=== PATIENT | female | born 2000 | race Caucasian/White ===

== ENCOUNTER 2018-10-08 07:46 | Inpatient (IN) | payer MEDICAID, OTHER ==
[2018-10-08] MEDS ORDERED: BRETHINE SUB-Q PRN (08:08)
[2018-10-08] MEDS ORDERED: BRETHINE IVP PRN (08:08)
[2018-10-08] MEDS ORDERED: SUBLIMAZE IV PRN (08:08)
[2018-10-08] MEDS ORDERED: STADOL IV PRN (08:08)
[2018-10-08] MEDS ORDERED: AMPICILLIN/NS 2 GM/100 ML 2 GM/100 ML BAG IV ONE (08:08)
[2018-10-08] MEDS ORDERED: ZOFRAN IV PRN (08:08)
[2018-10-08 08:47] LABS: Hematocrit 36.5 % (30.3-42.9); Mean Corpuscular HGB Conc 33 % (30-34); Mean Corpuscular Volume 84 fl (79-97); Platelet Count 179 K/mm3 (140-440); Red Blood Count 4.37 M/mm3 (3.65-5.03)
[2018-10-08] MEDS ORDERED: PITOCin/NS 20 UNIT/1000ML DRIP 20 UNITS/1,000 ML BAG IV SCH (09:00)
[2018-10-08] MEDS: LACTATED RINGERS 1,000 ML IV SCH ×3 (09:01→17:27)
--- NOTE | 2018-10-08 10:57 | History and Physical Report ---
History of Present Illness Date of examination: 10/08/18 Date of admission: 10/08/18 08:29 Chief complaint: Intense labor pains History of present illness: 18 yo Fe , JOHN 10/23/2018 (LMP) 37 weeks 6 days, presents in active labor. Pt received early and consistent care with [facility]. Her has been uncomplicated. Prental labs: O positive, Rubella Non-Immune, VDRl negative, HBsAg Negative, HIV Negative, CHL/GC/Trich Negative, QUAD Negative, GBS Positive Past History Past Medical History: no pertinent history Past Surgical History: appendectomy (2010) PNEUMATIC TESTER History: denies: abnormal PAP smear, chlamydia, gonorrhea, hepatitis B, hepatitis C, herpes, HIV, syphilis, trichomonas Family/Genetic History: none Social history: no significant social history, single, full code. denies: smoking, alcohol abuse, prescription drug abuse, IV drug use - Obstetrical History Expected Date of Delivery: 10/23/18 Actual Gestation: 37 Week(s) 6 Day(s) : 2 Para: 0 Hx # Term Pregnancies: 0 Number of Pregnancies: 0 Spontaneous Abortions: 1 Induced : 0 Number of Living Children: 0 Medications and Allergies Allergies Allergy/AdvReac Type Severity Reaction Status Date / Time No Known Allergies Allergy Unverified 10/08/18 07:55 Active Meds: Active Medications Butorphanol Tartrate (Stadol) 2 mg IV Q2H PRN PRN Reason: Pain , Severe (7-10) Ephedrine Sulfate (Ephedrine Sulfate) 10 mg IV Q2M PRN PRN Reason: Hypotension Fentanyl (Sublimaze) 100 mcg IV Q2H PRN PRN Reason: Labor Pain Oxytocin/Sodium Chloride (Pitocin/Ns 20 Unit/1000ml Drip) 20 units in 1,000 mls @ 125 mls/hr IV DIRECT KARLOS Lactated Ringer's (Lactated Ringers) 1,000 mls @ 125 mls/hr IV DIRECT KARLOS Last Admin: 10/08/18 09:01 Dose: 125 mls/hr Documented by: Ampicillin Sodium (Ampicillin/Ns 1 Gm/50 Ml) 1 gm in 50 mls @ 100 mls/hr IV Q4HR KARLOS; Protocol Oxytocin/Sodium Chloride (Pitocin/Ns 30 Unit/500ml) 30 units in 500 mls @ 4 mls/hr IV TITR KARLOS; Protocol Lidocaine (Xylocaine 2%) 20 ml INFILTRATI ONCE ONE Stop: 10/08/18 10:40 Mineral Oil (Mineral Oil) 30 ml PO QHS PRN PRN Reason: Constipation Ondansetron HCl (Zofran) 4 mg IV Q8H PRN PRN Reason: Nausea And Vomiting Terbutaline Sulfate (Brethine) 0.25 mg SUB-Q ONCE PRN PRN Reason: Hyperstimulation/Hypertonicity Terbutaline Sulfate (Brethine) 0.25 mg IVP ONCE PRN PRN Reason: Hyperstimulation/Hypertonicity Review of Systems Eyes: normal appearance Cardiovascular: no chest pain, no shortness of breath Respiratory: no shortness of breath Breasts: normal Gastrointestinal: no nausea, no vomiting, no diarrhea Genitourinary: normal appearance, contractions, no leakage of fluid, no genital sores Integumentary: no rash, no lesions - Vital Signs Vital signs: Vital Signs Pulse BP 92 H 134/77 10/08/18 07:54 10/08/18 07:54 Temp Pulse Resp BP Pulse Ox 98.7 F 80 18 124/60 99 10/08/18 10:40 10/08/18 10:38 10/08/18 10:40 10/08/18 10:38 10/08/18 10:40 - Physical Exam Breasts: Positive: normal Cardiovascular: Regular rate, Normal S1, Normal S2, No murmurs Lungs: Positive: Clear to auscultation, Normal air movement Abdomen: Positive: normal appearance, soft, normal bowel sounds. Negative: distention Genitourinary (Female): Positive: normal external genitalia, normal perenium Vulva: both: normal Vagina: Positive: normal moisture Uterus: Positive: enlarged Anus/Rectum: Positive: normal perianal skin Extremities: Positive: normal Deep Tendon Reflex Grade: Normal +2 - Obstetrical FHR: category 1 Uterine Contraction Monitor Mode: External Cervical Dilatation: 3 (Per Rn on admission) Cervical Effacement Percentage: 100 station: -2 Uterine Contraction Pattern: Irregular Uterine Tone Measurement Phase: Resting Uterine Contraction Intensity: Moderate Results Result Diagrams: 10/08/18 08:30 Abnormal lab results 10/08/18 Range/Units 08:30 WBC 13.4 H (4.5-11.0) K/mm3 RDW 18.0 H (13.2-15.2) % All other labs normal. Assessment and Plan A: IUP at 37w6d Active labor GBS positive P: Admit to L&D; Routine labor orders GBS prophylaxis anticiapte
[2018-10-08] MEDS ORDERED: PITOCin/NS 30 UNIT/500ML 30 UNITS/500 ML BAG IV SCH (11:00)
[2018-10-08] MEDS ORDERED: XYLOCAINE 2% INFILTRATI NR (11:00)
[2018-10-08] MEDS: AMPICILLIN/NS 1 GM/50 ML 1 GM/50 ML BAG IV SCH ×3 (13:30→22:33)
[2018-10-08] MEDS ORDERED: NARCAN 2 MG/2 ML IV PRN (16:00)
[2018-10-08] MEDS: fentaNYL-BUPIV 2 MCG/ML-0.125% 200 MCG/100 ML BAG EPIDURAL SCH (16:14)
--- NOTE | 2018-10-08 16:15 | Anesthesia Consultation ---
Anesthesia Consult and Med Hx Date of service: 10/08/18 - Airway Anesthetic Teeth Evaluation: Good ROM Head & Neck: Adequate Mental/Hyoid Distance: Adequate Mallampati Class: Class I Intubation Access Assessment: Probably Good - Pulmonary Exam CTA: Yes - Cardiac Exam Cardiac Exam: RRR - Pre-Operative Health Status ASA Pre-Surgery Classification: ASA2 Proposed Anesthetic Plan: Epidural - Pulmonary Hx Smoking: No Hx Asthma: No Hx Respiratory Symptoms: No SOB: No COPD: No Home Oxygen Therapy: No Hx Pneumonia: No Hx Sleep Apnea: No - Cardiovascular System Hx Hypertension: No Hx Coronary Artery Disease: No Hx Heart Attack/AMI: No Hx Angina: No Hx Percutaneous Transluminal Coronary Angioplasty (PTCA): No Hx Cardia Arrhythmia: No Hx Pacemaker: No Hx Internal Defibrillator: No Hx Valvular Heart Disease: No Hx Heart Murmur: No Hx Peripheral Vascular Disease: No - Central Nervous System Hx Neuromuscular Disorder: No Hx Seizures: No CVA: No Hx Back Pain: No Hx Psychiatric Problems: No - Gastrointestinal Hx Ulcer: No Hx Gastroesophageal Reflux Disease: Yes - Endocrine Hx Renal Disease: No Hx End Stage Renal Disease: No Hx Cirrhosis: No Hx Liver Disease: No Hx Insulin Dependent Diabetes: No Hx Non-Insulin Dependent Diabetes: No Hx Thyroid Disease: No Hx Hypothyroidism: No Hx Hyperthyroidism: No - Hematic Hx Anemia: Yes Hx Sickle Cell Disease: No - Other Systems Hx Alcohol Use: No Hx Substance Use: No Hx Cancer: No Hx Obesity: No
--- NOTE | 2018-10-08 16:16 | Post Anesthesia Evaluation ---
- Post Anesthesia Evaluation Patient Participated: Yes Airway Patent: Yes Stable Respiratory Function: Yes Nausea/Vomiting: No Temp > 96.8F: Yes Pain Manageable: Yes Adequeate Hydration: Yes Anesthesia Complications: No Block Receding Appropriately: Yes Patient on Ventilator: No
--- NOTE | 2018-10-08 16:16 | Anesthesia Day of Surgery ---
Anesthesia Day of Surgery - Day of Surgery Patient Examined: Yes Patient H&P Reviewed: Yes Patient is NPO: Yes Beta Blockers: No Cardiac Clearance: No Pulmonary Clearance: No Travis's Test: N/A
[2018-10-08] MEDS ORDERED: MINERAL OIL PO PRN (22:00)
[2018-10-08] MEDS ORDERED: TYLENOL ONE (22:40)
[2018-10-08] MEDS ORDERED: MARCAINE 0.25% INFILTRATI ONE (23:09)
[2018-10-09] MEDS: fentaNYL-BUPIV 2 MCG/ML-0.125% 200 MCG/100 ML BAG EPIDURAL SCH ×2 (00:17→07:20)
[2018-10-09] MEDS: TYLENOL PO PRN ×2 (02:06→22:36)
[2018-10-09] MEDS: AMPICILLIN/NS 1 GM/50 ML 1 GM/50 ML BAG IV SCH ×2 (02:26→06:00)
[2018-10-09] MEDS: LACTATED RINGERS 1,000 ML IV SCH ×2 (06:01→23:13)
[2018-10-09] MEDS ORDERED: MARCAINE 0.25% INFILTRATI ONE (07:15)
[2018-10-09] MEDS ORDERED: GENTAMICIN 80 MG in NACL 0.9% 100 ML IV SCH (07:30)
[2018-10-09] MEDS ORDERED: TYLENOL PO ONE (08:00)
[2018-10-09] MEDS ORDERED: ANCEF/STERILE WATER 2 GM/20 ML 2 GM/20 ML SYRINGE IV ONE (08:34)
[2018-10-09] MEDS ORDERED: PEPCID IV ONE (08:34)
[2018-10-09] MEDS ORDERED: REGLAN ONE (08:34)
[2018-10-09] MEDS ORDERED: BICITRA ONE (08:34)
[2018-10-09] MEDS ORDERED: MARCAINE 0.5% INFILTRATI ONE (08:35)
--- NOTE | 2018-10-09 08:48 | Event Note ---
Called to patient room for temp 100.4 since admission. GBS positive receiving ampicillin. Instructed nurse and wrote orders to begin gentamicin. Examined patient cervix 8/100/-3. Pitocin = 2mu. Epidural in place. Placed IUPC. Observed patient for 1 hour Temp 100.7, tachycardia 170s, suspected chorioamnionitis chorioamnionitis. Rechecked cervix 9/100/-2. However, patient unable to bear down and push effectively. Due to tachycardia, maternal temperature and suspected chorioamnionitis, unproven pelvis and anticipation of remote delivery >1hr discussion had with patient concerning exposure of fetus to infected amniotic fluid for prolonged periods of time. Recommend primary section for tachycardia and suspected chorioamnionitis present on admission - distress. Risks, benefits and alternatives discussed and informed consent signed.
[2018-10-09] MEDS ORDERED: XYLOCAINE MPF 2% ONE (08:58)
[2018-10-09] MEDS ORDERED: SUBLIMAZE ONE (08:58)
[2018-10-09] MEDS ORDERED: HEMABATE IM ONE (08:58)
[2018-10-09] MEDS ORDERED: SODIUM CHLORIDE FLUSH SYRINGE 10 ML IV PRN (09:00)
[2018-10-09] MEDS ORDERED: ZOFRAN IV PRN (09:00)
[2018-10-09] MEDS ORDERED: NARCAN 0.4 MG/1 ML IV PRN (09:00)
[2018-10-09] MEDS ORDERED: ANCEF/STERILE WATER 2 GM/20 ML 2 GM/20 ML SYRINGE IV NR (09:00)
[2018-10-09] MEDS ORDERED: PHENERGAN PO PRN (09:00)
[2018-10-09] MEDS ORDERED: PHENERGAN PR PRN (09:00)
[2018-10-09] MEDS ORDERED: PEPCID IV NR (09:00)
[2018-10-09] MEDS ORDERED: BICITRA PO NR (09:00)
[2018-10-09] MEDS ORDERED: DILAUDID IV PRN (09:00)
[2018-10-09] MEDS ORDERED: METHERGINE IM ONE ×2 (09:00→12:08)
[2018-10-09] MEDS ORDERED: LACTATED RINGERS 1,000 ML IV SCH (09:00)
[2018-10-09] MEDS ORDERED: NEO SYNEPHRINE ONE (09:17)
[2018-10-09] MEDS ORDERED: LACTATED RINGERS 1,000 ML ONE (09:45)
[2018-10-09] MEDS ORDERED: DILAUDID ONE ×2 (10:38→10:57)
[2018-10-09] MEDS ORDERED: TORADOL ONE (10:58)
[2018-10-09] MEDS ORDERED: LANSINOH TP PRN (12:00)
[2018-10-09] MEDS ORDERED: MORPHINE IV PRN (12:00)
[2018-10-09] MEDS ORDERED: AFLURIA QUAD 2018-2019 SYRINGE IM ONE (12:00)
[2018-10-09] MEDS ORDERED: TUCKS PAD TP PRN (12:00)
[2018-10-09] MEDS ORDERED: MYLICON PO PRN (12:00)
[2018-10-09] MEDS ORDERED: PITOCin/NS 20 UNIT/1000ML DRIP 20 UNITS/1,000 ML BAG IV SCH (12:00)
--- NOTE | 2018-10-09 12:08 | Operative Report ---
Operative Report Operative Report: PREOP Diagnosis 1. 38 weeks gestation 2. tachycardia/Category II heart tracing 3. Suspected chorioamnionitis 4. Maternal fever 5. Hematuria Postop Diagnosis 1. 38 weeks gestation 2. tachycardia/Category II heart tracing 3. Suspected chorioamnionitis 4. Maternal fever 5. Hematuria Procedure: 1. Primary low-transverse section 2. Retrograde bladder irrigation with sterile-milk Findings 1. Viable male infant, vertex presentation, weighing 6lb 14oz, 3115g APGARS 8 at 1 min, 9 at 5 min 2. Hematuria noted pre- and intra-op. 3. No sterile milk noted in surgical field s/p retrograde filling with sterile milk Surgeon 1. Anahy Wheatley MD Anesthesia: 1. Epidural I/O: EBL: 800ml UOP: 250ml, clear urine IVF 800ml LR Specimens removed: 1. Placenta -to pathology Complications: none Disposition: Patient taken to recovery room in stable condition INDICATIONS: The patient is a 18yo at 38 weeks was undergoing augmentation of labor. She progressed to 9cm however maternal fever worsened despite antibiotics and tachycardia developed. A discussion was had with the patient about the risks of chorioamnionitis. After a trial of pushing and a concern for remote delivery the decision was made to proceed to primary section. The pat ient was consented and the risks including but not limited to bleeding, infections, injury to surrounding organs, potential injury to mother/ were discussed. All questions were answered and informed consent signed. PROCEDURE: The patient was taken to the OR in stable condition. Adequate anesthesia was achieved with epidural anesthesia. A Nazario catheter was previously in place with hematuria. She wore SCDs for DVT prophylaxis. And received Ancef for infection prophylaxis. The patient was prepped and draped in the usual fashion and an additional time out was done. A Pfannestiel incision was made in the skin. The fascia was incised and the incision extended laterally. The superior and inferior aspect of the rectus muscle was dissected off of the fascia. Entry into the peritoneum was achieved. The incision was extended cranially. Uterine serosal adhesions to bladder and pelvic organs were noted. A low- transverse incision made made in the uterus and extended laterally. membranes were ruptured The head was brought to the hysterotomy and head and body delivered. The was bulb suctioned. The cord was clamped x 2, cut and infant handed off to awaiting cell tuber machine staff. The placenta was delivered intact and 20 units of IV Pitocin was added to LR fluids. The uterus was cleaned of all clots. The vesicouterine peritoneum and lower uterine se gment were adhered and noted to have areas of bleeding. The uterus was repaired with 0-Vicryl in a running, locked stitch and an imbricating layer of the same suture was used. Due to the hematuria, the bladder was backfilled with 60ml of sterile milk. The pelvis was irrigated with normal saline and no milk was noted in the surgical field. No defects were noted in the bladder. Tissell fibrin product and Surgicel were applied to the hysterotomy and vesicouterine peritoneium. The rectus muscle and was reapproximated with 2-0 Vicryl. The fascia was closed with 0 Vicryl. Subcutaneous layer reapproximated with 2-0 Vicryl. and Skin closed with 4-0 Vicryl. The patient tolerated the procedure well. All counts were correct x 3. Urine was noted to be clear at close of case. I was present and scrubbed for the entire procedure. The patient was taken to the recovery room in stable condition. The nazario catheter will be maintained in place for 24hrs and re-evaluated.
[2018-10-09 12:17] LABS: Hematocrit 31.2 % (30.3-42.9); Hemoglobin 10.4 gm/dl (10.1-14.3); Mean Corpuscular HGB Conc 33 % (30-34); Mean Corpuscular Volume 83 fl (79-97); Platelet Count 151 K/mm3 (140-440); Red Blood Count 3.75 M/mm3 (3.65-5.03); Red Cell Distribution Width 17.9 % (13.2-15.2)
[2018-10-09] MEDS: CLEOCIN 900 MG/50 mL 900 MG/50 ML BAG IV SCH ×3 (12:21→22:45)
[2018-10-09] MEDS: TORADOL IV PRN ×2 (12:33→22:36)
[2018-10-09 12:46] LABS: Alanine Aminotransferase 6 units/L (7-56); Albumin 2.4 g/dL (3.9-5); BUN/Creatinine Ratio 14; Blood Urea Nitrogen 10 mg/dL (7-17); Calcium 7.9 mg/dL (8.4-10.2); Hemolysis Index 1
[2018-10-09 13:22] LABS: Anisocytosis 1+; Band Neutrophils # (Manual) 1.1 K/mm3; Basophils % (Manual) 0 % (0.0-1.8); Eosinophils % (Manual) 0 % (0.0-4.3); Monocytes % (Manual) 0 % (0.0-7.3); Platelet Estimate Consistent w Auto; Total Cells Counted 100
[2018-10-09] MEDS ORDERED: GENTAMICIN/NS 100 MG/100 ML 100 MG/100 ML BAG IV SCH (17:00)
[2018-10-09] MEDS ORDERED: GENTAMICIN IV SCH (18:00)
[2018-10-09] MEDS: GENTAMICIN/NS 100 MG/100 ML 100 MG/100 ML BAG IV SCH (22:00)
[2018-10-10] MEDS: DILAUDID IV PRN ×2 (00:05→04:00)
[2018-10-10] MEDS: TORADOL IV PRN (05:52)
[2018-10-10] MEDS: GENTAMICIN/NS 100 MG/100 ML 100 MG/100 ML BAG IV SCH ×3 (05:53→21:54)
[2018-10-10] MEDS: LACTATED RINGERS 1,000 ML IV SCH (05:58)
[2018-10-10] MEDS: CLEOCIN 900 MG/50 mL 900 MG/50 ML BAG IV SCH ×2 (06:42→16:51)
[2018-10-10 07:06] LABS: BUN/Creatinine Ratio 16; Blood Urea Nitrogen 8 mg/dL (7-17); Calcium 7.7 mg/dL (8.4-10.2); Hemolysis Index 2
[2018-10-10] MEDS: FEOSOL PO SCH (10:10)
--- NOTE | 2018-10-10 11:25 | Progress Note ---
Assessment and Plan A: /postop day 1 S/P low transverse section. Anemia secondary to and blood loss. History of chorioamnionitis during labor. P: Remove Walsh catheter. Iron supplementation. Advance diet as tolerated. Encouraged patient to ambulate. Repeat CBC and metabolic panel in AM. Subjective - Subjective Date of service: 10/10/18 Principal diagnosis: /postop day 1 S/P primary LTCS Interval history: /postop day 1 S/P primary low transverse section. Doing well. Walsh catheter was left in overnight due to gloria colored urine; this morning urine is clear and pale yellow so Walsh cather can be removed per Dr. Wheatley's recommendation. Patient states she is passing gas and she denies nausea or vomiting. She has had liquids to eat and plans to eat regular breakfast. Patient has not yet been out of bed to ambulate but plans to ambulate today in [place]. Patient reports small amount of lochia and denies clots. Patient denies headache, visual disturbance, dizziness, chest pain, shortness of breath, cough, abdominal pain, leg pain, or heavy bleeding. Patient is receiving antibiotics due to chorioamnionitis during labor. She is currently afebrile. Patient reports: appetite normal, pain well controlled, flatus, no dizzy ambulation, no bowel movement, no nauseated [place]: doing well Objective - Vital Signs Latest vital signs: Vital Signs Temp Pulse Resp BP BP BP Pulse Ox 10/10/18 08:15 97.3 F L 85 20 103/53 10/10/18 05:05 97.7 F 89 20 109/59 109/59 95 10/10/18 00:55 98.2 F 88 18 98/55 96 10/10/18 00:00 98.6 F 10/09/18 22:00 102.4 F H 10/09/18 20:55 101.6 F H 100 H 18 116/78 98 10/09/18 16:45 98.6 F 106 H 18 136/84 97 10/09/18 15:56 98.6 F 18 136/84 10/09/18 13:26 98.2 F 93 H 111/68 96 10/09/18 12:25 101 H 17 106/60 96 10/09/18 12:20 104 H 23 113/68 97 10/09/18 12:11 119 H 20 102/60 96 10/09/18 12:00 99.4 F 119 H 21 104/49 95 10/09/18 11:55 131 H 16 124/75 96 10/09/18 11:51 136 H 16 117/66 96 10/09/18 11:45 129 H 16 113/65 96 10/09/18 11:40 136 H 12 114/61 96 10/09/18 11:30 126 H 16 114/52 96 Intake and Output 10/09/18 10/10/18 10/10/18 23:59 07:59 15:59 Intake Total 870 1803.75 Output Total 300 2400 Balance 570 -596.25 Intake: IV 150 843.75 CLEOCIN 900 MG/50 mL 900 50 mg In 50 ml @ 100 mls/hr IV Q8H KARLOS Rx#:[id number] GARAMYCIN/NS 100 MG/100 100 ML 100 mg In 100 ml @ 200 mls/hr IV Q8H KARLOS Rx#: [id number] Lactated Ringers 1,000 ml 843.75 @ 125 mls/hr IV DIRECT KARLOS Rx#:[id number] Oral 720 Intake, Free Water 960 Output: Urine 300 2400 Indwelling Catheter 300 2400 Other: Total, Intake Amount 240 Total, Output Amount 300 1500 # Voids Indwelling Catheter 2 # Bowel Movements 0 - Exam Cardiovascular: Present: Regular rate, Normal S1, Normal S2, No murmurs Lungs: Present: Clear to auscultation Abdomen: Present: normal appearance, soft, normal bowel sounds. Absent: distention, tenderness, guarding, rigidity Uterus: Present: normal, firm, fundal height below umbilicus. Absent: bogginess, tenderness Extremities: Present: normal, edema (BLE edema, R=L). Absent: tenderness Incision: Present: normal, dry, intact, dressed - Labs Labs: Abnormal lab results 10/09/18 10/09/18 10/10/18 Range/Units 11:31 11:31 06:12 WBC 15.1 H (4.5-11.0) K/mm3 RDW 17.9 H (13.2-15.2) % Seg Neuts % (Manual) 91.0 H (40.0-70.0) % Lymphocytes % (Manual) 2.0 L (13.4-35.0) % Seg Neutrophils # Man 13.7 H (1.8-7.7) K/mm3 Lymphocytes # (Manual) 0.3 L (1.2-5.4) K/mm3 Sodium 136 L (137-145) mmol/L Carbon Dioxide 19 L (22-30) mmol/L Creatinine 0.5 L (0.7-1.2) mg/dL Calcium 7.9 L 7.7 L (8.4-10.2) mg/dL ALT 6 L (7-56) units/L Alkaline Phosphatase 139 H (35-129) units/L Total Protein 4.7 L (6.3-8.2) g/dL Albumin 2.4 L (3.9-5) g/dL
[2018-10-10] MEDS: PERCOCET 5/325 PO PRN (20:43)
[2018-10-10] MEDS: IBUPROFEN PO PRN (23:13)
[2018-10-11] MEDS: CLEOCIN 900 MG/50 mL 900 MG/50 ML BAG IV SCH ×4 (00:26→16:14)
[2018-10-11] MEDS ORDERED: BOOSTRIX IM ONE (06:34)
[2018-10-11] MEDS: GENTAMICIN/NS 100 MG/100 ML 100 MG/100 ML BAG IV SCH ×4 (06:45→22:33)
[2018-10-11 08:16] LABS: Basophils % (Auto) 0.2 % (0.0-1.8); Eosinophils # (Auto) 0.3 K/mm3 (0.0-0.4); Eosinophils % (Auto) 2.9 % (0.0-4.3); Hematocrit 22.1 % (30.3-42.9); Hemoglobin 7.5 gm/dl (10.1-14.3); Lymphocytes # (Auto) 1.7 K/mm3 (1.2-5.4); Lymphocytes % (Auto) 13.9 % (13.4-35.0); Mean Corpuscular HGB Conc 34 % (30-34); Mean Corpuscular Volume 83 fl (79-97); Monocytes # (Auto) 0.5 K/mm3 (0.0-0.8); Monocytes % (Auto) 4.2 % (0.0-7.3); Platelet Count 152 K/mm3 (140-440); Red Blood Count 2.66 M/mm3 (3.65-5.03); Red Cell Distribution Width 18.3 % (13.2-15.2)
[2018-10-11 08:38] LABS: Alanine Aminotransferase 7 units/L (7-56); Albumin 2.2 g/dL (3.9-5); BUN/Creatinine Ratio 20; Blood Urea Nitrogen 8 mg/dL (7-17); Hemolysis Index 13
[2018-10-11] MEDS: FEOSOL PO SCH (09:38)
[2018-10-11] MEDS: IBUPROFEN PO PRN ×2 (09:38→16:15)
[2018-10-11] MEDS: PERCOCET 5/325 PO PRN ×2 (09:40→16:15)
--- NOTE | 2018-10-11 16:31 | Progress Note ---
Assessment and Plan A: /postop day 2 S/P primary LTCS. Anemia secondary to and blood loss. History of chorioamnionitis during . P: Continue iron supplementation. Anticipate discharge home tomorrow if OK with MD. Subjective - Subjective Date of service: 10/11/18 Principal diagnosis: /postop day 2 S/P primary LTCS Interval history: /postop day 2 S/P primary low transverse section. History of chorioamnionitis during labor; history of anemia. Patient is voiding without difficulty, ambulating well, tolerating a regular diet without nausea or vomiting. Passing gas; no BM yet. Patient denie headache, chest pain, cough, shortness of breath, leg pain, or heavy vaginal bleeding. Patient reports: appetite normal, voiding normally, pain well controlled, flatus, ambulating normally, no dizzy ambulation, no nauseated : doing well Objective - Vital Signs Latest vital signs: Vital Signs Temp Pulse Resp BP BP Pulse Ox 10/11/18 07:16 97.7 F 76 18 105/62 10/10/18 23:13 98.6 F 90 20 109/62 97 Intake and Output 10/11/18 10/11/18 10/11/18 07:59 15:59 23:59 Intake Total 630 50 Output Total 900 Balance -270 50 Intake: IV 150 50 CLEOCIN 900 MG/50 mL 900 50 50 mg In 50 ml @ 100 mls/hr IV Q8H KARLOS Rx#:[id number] GARAMYCIN/NS 100 MG/100 100 ML 100 mg In 100 ml @ 200 mls/hr IV Q8H KARLOS Rx#: [id number] Oral 480 Output: Urine 900 Void 900 Other: Total, Intake Amount 480 Total, Output Amount 900 # Voids Void 3 - Exam Cardiovascular: Present: Regular rate, Normal S1, Normal S2, No murmurs Lungs: Present: Clear to auscultation Abdomen: Present: normal appearance, soft, normal bowel sounds. Absent: distention, tenderness, guarding, rigidity Uterus: Present: normal, firm, fundal height below umbilicus. Absent: bogginess, tenderness Extremities: Present: normal, edema (mild bilateral pedal edema). Absent: tenderness Incision: Present: normal, dry, intact - Labs Labs: Abnormal lab results 05/12/19 05/12/19 Range/Units 07:58 07:59 WBC 12.0 H (4.5-11.0) K/mm3 RBC 2.66 L (3.65-5.03) M/mm3 Hgb 7.5 L (10.1-14.3) gm/dl Hct 22.1 L D (30.3-42.9) % RDW 18.3 H (13.2-15.2) % Seg Neutrophils % 78.8 H (40.0-70.0) % Seg Neutrophils # 9.4 H (1.8-7.7) K/mm3 Creatinine 0.4 L (0.7-1.2) mg/dL Calcium 8.0 L (8.4-10.2) mg/dL Total Protein 5.1 L (6.3-8.2) g/dL Albumin 2.2 L (3.9-5) g/dL
[2018-10-11] MEDS: LACTATED RINGERS 1,000 ML IV SCH (22:33)
[2018-10-12] MEDS: CLEOCIN 900 MG/50 mL 900 MG/50 ML BAG IV SCH ×4 (03:55→20:10)
[2018-10-12] MEDS ORDERED: M-M-R II VACCINE SUB-Q ONE (05:09)
[2018-10-12] MEDS: GENTAMICIN/NS 100 MG/100 ML 100 MG/100 ML BAG IV SCH ×2 (06:51→15:54)
[2018-10-12 09:52] LABS: Basophils % (Auto) 0.2 % (0.0-1.8); Eosinophils # (Auto) 0.3 K/mm3 (0.0-0.4); Hematocrit 23.4 % (30.3-42.9); Lymphocytes # (Auto) 1.6 K/mm3 (1.2-5.4); Lymphocytes % (Auto) 14.6 % (13.4-35.0); Mean Corpuscular HGB Conc 34 % (30-34); Mean Corpuscular Volume 83 fl (79-97); Monocytes # (Auto) 0.3 K/mm3 (0.0-0.8); Platelet Count 203 K/mm3 (140-440); Red Blood Count 2.84 M/mm3 (3.65-5.03); Red Cell Distribution Width 17.7 % (13.2-15.2)
--- NOTE | 2018-10-12 09:55 | Progress Note ---
Assessment and Plan - Patient Problems (1) 37 weeks gestation of Current Visit: Yes Status: Acute (2) delivery delivered Current Visit: Yes Status: Acute Plan to address problem: Continue routine post op care. (3) Febrile illness Current Visit: Yes Status: Acute Plan to address problem: She is on amp/gent/clinda. Last fever was over 48 hrs ago. Urine and blood cultures are negative for 2 days. WBC was 12. CBC ordered today. Patient is feeling well and desires to go home. If WBC normalizes, will discharge home. Subjective - Subjective Date of service: 10/12/18 Principal diagnosis: /postop day 2 S/P primary LTCS Interval history: Patient is a 18 year old who is S/P C/section 4 days ago for nonreassuring tracing. On POD#2, she developed a fever of 102F. Her last temp spike was 2 days ago. Her WBC has trended down from 15 to 12. Her urine and blood cultures were negative after 2 days. She is on amp/gent/clinda. She denies any cough, chest pain, or SOB. This AM, she is feeling well. Objective - Vital Signs Latest vital signs: Vital Signs Temp Pulse Resp BP BP Pulse Ox 10/12/18 08:16 98 F 77 18 107/61 99 10/12/18 00:00 98.9 F 89 20 118/58 99 10/11/18 16:11 97.7 F 78 18 97/52 Intake and Output 10/11/18 10/12/18 10/12/18 23:59 07:59 15:59 Intake Total 870 120 480 Balance 870 120 480 Intake: IV 150 CLEOCIN 900 MG/50 mL 900 50 mg In 50 ml @ 100 mls/hr IV Q8H KARLOS Rx#:[id number] GARAMYCIN/NS 100 MG/100 100 ML 100 mg In 100 ml @ 200 mls/hr IV Q8H KARLOS Rx#: [id number] Oral 720 120 480 Other: Total, Intake Amount 240 120 480 # Voids Void 1 1 - Exam Cardiovascular: Present: Normal S1, Normal S2 Lungs: Present: Clear to auscultation Vulva: both: normal Deep Tendon Reflex Grade: Normal +2 - Labs Labs: Abnormal lab results 10/12/18 Range/Units 09:27 RBC 2.84 L (3.65-5.03) M/mm3 Hgb 8.0 L (10.1-14.3) gm/dl Hct 23.4 L (30.3-42.9) % RDW 17.7 H (13.2-15.2) % Seg Neutrophils % 79.2 H (40.0-70.0) % Seg Neutrophils # 8.5 H (1.8-7.7) K/mm3
--- NOTE | 2018-10-12 18:36 | Discharge Summary ---
Providers - Providers Date of Admission: 10/08/18 08:29 Date of discharge: 10/12/18 Attending physician: CAMPBELL DAY MD 10/12/18 10:17 Consult Patient Care After School Program Director [CONS] Routine Reason For Exam: pt and FOB request for family assistaance Primary care physician: CAMPBELL DAY MD Hospitalization Reason for admission: active labor, IUP at term Delivery: Procedure: primary low transverse Episiotomy: none Laceration: none Incision: normal, dry, intact, other (steri strips in place) Other procedures: none complications: other (maternal fever) Discharge diagnosis: IUP at term delivered [place] baby: male Hospital course: Complicated by maternal fever. S/P antibiotics therapy. Afebrile for more than 48 hours. Was cleared for discharge by Dr. Day. Condition at discharge: Stable Disposition: DC-01 TO HOME OR SELFCARE - Discharge Diagnoses (1) delivery delivered Status: Acute (2) Anemia due to blood loss, acute Status: Acute Comment: Asymptomatic Continue iron therapy Plan - Discharge Medications Prescriptions: Ferrous Sulfate [Feosol 325 MG tab] 325 mg PO QDAY #30 tablet Ibuprofen [Motrin 800 MG tab] 800 mg PO Q6H PRN #30 tablet PRN Reason: Pain, Mild (1-3) - Provider Discharge Summary Activity: routine, no sex for 6 weeks, no heavy lifting 4 weeks, no strenuous exercise Diet: routine Instructions: routine Additional instructions: [] Smoking cessation referral if applicable(refer to patient education folder for contact #) [] Refer to [facility]'s [facility] Booklet Call your doctor immediately for: * Fever > 100.5 * Heavy vaginal bleeding ( >1 pad per hour) * Severe persistent headache * Shortness of breath * Reddened, hot, painful area to leg or breast * Drainage or odor from incision. * Keep incision clean and dry at all times and follow doctor's instructions regarding bathing/showering - Follow up plan Follow up: CAMPBELL DAY MD [Primary Care Provider] - 7 Days (Follow up at [facility] as needed or in 1 week for incision check) Forms: [facility] Discharge Summary, Discharge Signature Page
[2018-10-13] MEDS: GENTAMICIN/NS 100 MG/100 ML 100 MG/100 ML BAG IV SCH ×2 (00:14→08:15)
[2018-10-13] MEDS: CLEOCIN 900 MG/50 mL 900 MG/50 ML BAG IV SCH (03:49)
[2018-10-13 09:28] VITALS: BP 122/65
[2018-10-13] MEDS: PERCOCET 5/325 PO PRN (10:58)
[2018-10-13] MEDS: IBUPROFEN PO PRN (10:58)
[2018-10-13] MEDS: FEOSOL PO SCH (10:58)
== END 2018-10-13 11:40 | disposition home or self-care (01) | DRG 787 ==
LOC: TRG 07:46 → LD 08:29 → OB 10-09 13:48
PROVIDERS: ADMIT Obstetrics & Gynecology; ATTEND Obstetrics & Gynecology
PROC: 10D00Z1 Extraction of Products of Conception, Low, Open Approach (ICD-10-PCS; principal; 2018-10-09)
PROC: 3E0234Z Introduction of Serum, Toxoid and Vaccine into Muscle, Percutaneous Approach (ICD-10-PCS; 2018-10-11)
DX: O99.824 Streptococcus B carrier state complicating childbirth (principal); D62 Acute posthemorrhagic anemia; O75.2 Pyrexia during labor, not elsewhere classified; Z37.0 Single live birth; Z23 Encounter for immunization; Z3A.37 37 weeks gestation of pregnancy; Z90.49 Acquired absence of other specified parts of digestive tract; O99.62 Diseases of the digestive system complicating childbirth; K21.9 Gastro-esophageal reflux disease without esophagitis; O76 Abnormality in fetal heart rate and rhythm complicating labor and delivery; O90.81 Anemia of the puerperium; O75.89 Other specified complications of labor and delivery; R31.9 Hematuria, unspecified
CPT/HCPCS: 36415; 80048; 80053; 85007; 85014; 85018; 85025; 85027; 86592; 86850; 86900; 86901; 87040; 87086; 88307; 90472; 90686; 90715; G0378; C1765; C9250; J0290; J0690; J1170; J1580; J1885; J2210; J2370; J2590; J2765; J3010; J7120

== ENCOUNTER 2020-09-29 05:00 | Inpatient (IN) | payer OTHER ==
[2020-09-29] MEDS ORDERED: fentaNYL 100 MCG/2 ML INJ IV PRN (05:38)
[2020-09-29] MEDS ORDERED: MINERAL OIL 30 ML ORAL LIQD PO PRN (05:38)
[2020-09-29] MEDS ORDERED: ONDANSETRON 4 MG/2 ML INJ IV PRN ×2 (05:38→15:25)
[2020-09-29] MEDS ORDERED: TERBUTALINE 1 MG/1 ML INJ SUB-Q PRN (05:38)
[2020-09-29] MEDS ORDERED: ePHEDrine SULFATE 50 MG/1 ML INJ IV PRN ×3 (05:38→09:00)
[2020-09-29] MEDS ORDERED: LIDOCAINE (2%) 20 MG/1 ML VIAL 20 ML MDV INFILTRATI ONE (05:38)
[2020-09-29] MEDS ORDERED: AMPICILLIN/NS 2 GM/100 ML 2 GM/100 ML BAG IV ONE (05:38)
[2020-09-29] MEDS ORDERED: OXYTOCIN DRIP 30 UNITS/500 ML BAG IV SCH (06:00)
--- NOTE | 2020-09-29 06:00 | History and Physical Report ---
History of Present Illness Date of examination: 09/29/20 Date of admission: 09/29/20 05:38 Chief complaint: contractions History of present illness: 20 yo at 37w5d JOHN 10/15/20 c/b prior c/s x 1, rubella non-immune, GBS pos, originally scheduled for repeat c/s on 10/09/20 presenting with regular contractions every 2 minutes, found to be in active labor, now 4 cm. Denies VB or ROM. +FM. Denies PIH symptoms. labs O pos, Ab neg Hgb 11.9 Pap NILM Rubella NI VDRL NR, Ucx neg, HBsAG neg, HIV neg, GCCT neg, MSAPF neg, 1h GTT 116 Past History Past Medical History: no pertinent history Past Surgical History: section (x1 ([facility] Family/Genetic History: none Social history: no significant social history - Obstetrical History Expected Date of Delivery: 10/15/20 Actual Gestation: 37 Week(s) 5 Day(s) : 3 Para: 1 Hx # Term Pregnancies: 1 Spontaneous Abortions: 1 Number of Living Children: 1 Medications and Allergies Allergies Allergy/AdvReac Type Severity Reaction Status Date / Time No Known Allergies Allergy Unverified 10/08/18 07:55 Home Medications Medication Instructions Recorded Confirmed Last Taken Type Ferrous Sulfate [Feosol 325 MG tab] 325 mg PO QDAY #30 tablet 10/12/18 Unknown Rx Ibuprofen [Motrin 800 MG tab] 800 mg PO Q6H PRN #30 tablet 10/12/18 Unknown Rx oxyCODONE /ACETAMINOPHEN [Percocet 1 tab PO Q4HR PRN 14 Days #30 tab 10/13/18 Unknown Rx 5/325] Active Meds: Active Medications Ephedrine Sulfate (Ephedrine Sulfate 50 Mg/1 Ml Inj) 10 mg IV Q2M PRN PRN Reason: Hypotension Fentanyl (Fentanyl 100 Mcg/2 Ml Inj) 100 mcg IV Q2H PRN PRN Reason: Pain,Severe (7-10) LABOR PAIN Lactated Ringer's (Lactated Ringers) 1,000 mls @ 125 mls/hr IV DIRECT KARLOS Oxytocin/Sodium Chloride (Pitocin/Ns 30 Unit/500ml) 30 units in 500 mls @ 40 mls/hr IV TITR KARLOS; Protocol Ampicillin Sodium (Ampicillin/Ns 2 Gm/100 Ml) 2 gm in 100 mls @ 100 mls/hr IV ONCE ONE; Protocol Stop: 09/29/20 06:37 Mineral Oil (Mineral Oil 30 Ml Oral Liqd) 30 ml PO QHS PRN PRN Reason: Constipation Ondansetron HCl (Ondansetron 4 Mg/2 Ml Inj) 4 mg IV Q8H PRN PRN Reason: Nausea And Vomiting Terbutaline Sulfate (Terbutaline 1 Mg/1 Ml Inj) 0.25 mg SUB-Q ONCE PRN PRN Reason: Hyperstimulation/Hypertonicity Review of Systems All systems: negative (except HPI) - Vital Signs Vital signs: Vital Signs Pulse BP Pulse Ox 72 131/60 99 09/29/20 05:18 09/29/20 05:18 09/29/20 05:18 Temp Pulse Resp BP Pulse Ox 98.2 F 76 18 131/60 98 09/29/20 05:19 09/29/20 05:48 09/29/20 05:19 09/29/20 05:19 09/29/20 05:48 - Physical Exam Abdomen: Positive: normal appearance, normal bowel sounds Genitourinary (Female): Positive: normal external genitalia - Obstetrical FHR: category 1 Uterine Contraction Monitor Mode: External Cervical Dilatation: 4 Cervical Effacement Percentage: 70 station: -3 Uterine Contraction Frequency (min): 2 Uterine Contraction Pattern: Regular Results All other labs normal. Assessment and Plan - Patient Problems (1) Desires vaginal after trial Current Visit: Yes Status: Acute Plan to address problem: 37w5d gestation c/b hx C/s x 1, desiring TOLAC, 4 cm with regular contractions, currently intact --Ok for epidural, Stadol for pain until that time --Amp for GBS positive --MMR for Rubella NI --Expectant management for now --Patient can change plan to delivery at any time --Anticipate
[2020-09-29 06:06] LABS: Hematocrit 29.2 % (30.3-42.9); Hemoglobin 9.5 gm/dl (10.1-14.3); Mean Corpuscular HGB Conc 33 % (30-34); Mean Corpuscular Volume 70 fl (79-97); Platelet Count 261 K/mm3 (140-440); Red Blood Count 4.19 M/mm3 (3.65-5.03); Red Cell Distribution Width 17.3 % (13.2-15.2)
[2020-09-29] MEDS ORDERED: NALOXONE 2 MG/2 ML INJ IV PRN ×2 (07:31→09:00)
[2020-09-29] MEDS: LACTATED RINGERS 1,000 ML IV SCH ×3 (07:49→11:49)
[2020-09-29] MEDS ORDERED: fentaNYL-BUPIV 2 MCG/ML-0.125% 200 MCG/100 ML BAG EPIDURAL SCH ×2 (08:00→09:00)
--- NOTE | 2020-09-29 08:35 | Anesthesia Consultation ---
Anesthesia Consult and Med Hx Date of service: 09/29/20 - Airway Anesthetic Teeth Evaluation: Good ROM Head & Neck: Adequate Mental/Hyoid Distance: Adequate Mallampati Class: Class II Intubation Access Assessment: Good - Pulmonary Exam CTA: Yes - Cardiac Exam Cardiac Exam: RRR - Pre-Operative Health Status ASA Pre-Surgery Classification: ASA2 Proposed Anesthetic Plan: Epidural - Pulmonary Hx Smoking: No Hx Asthma: No Hx Respiratory Symptoms: No SOB: No COPD: No Hx Pneumonia: No Hx Sleep Apnea: No - Cardiovascular System Hx Hypertension: No Hx Coronary Artery Disease: No Hx Heart Attack/AMI: No Hx Angina: No Hx Percutaneous Transluminal Coronary Angioplasty (PTCA): No Hx Cardia Arrhythmia: No Hx Pacemaker: No Hx Internal Defibrillator: No Hx Valvular Heart Disease: No Hx Heart Murmur: No Hx Peripheral Vascular Disease: No - Central Nervous System Hx Neuromuscular Disorder: No Hx Seizures: No CVA: No Hx Back Pain: No Hx Psychiatric Problems: No - Gastrointestinal Hx Ulcer: No Hx Gastroesophageal Reflux Disease: Yes - Endocrine Hx Renal Disease: No Hx End Stage Renal Disease: No Hx Cirrhosis: No Hx Liver Disease: No Hx Insulin Dependent Diabetes: No Hx Non-Insulin Dependent Diabetes: No Hx Thyroid Disease: No Hx Hypothyroidism: No Hx Hyperthyroidism: No - Hematic Hx Anemia: Yes Hx Sickle Cell Disease: No - Other Systems Hx Alcohol Use: Yes Hx Substance Use: No Hx Cancer: No Hx Obesity: No
--- NOTE | 2020-09-29 08:43 | Progress Note ---
Labor Epidural - Labor Epidural Start Time: 07:54 Stop Time: 07:56 Performed by:: GUERRERO LU Procedure: Patient is requesting a laboring epidural for laboring pain. Patient IDed, H&P reviewed, all questions and concerns were answered, and consent was signed. Timeout was performed at bedside. Patient in sitting position. Sterile prep and drape was performed. [3] ml of 1% lidocaine skin wheal at L[3]- L [4]. 18- gauge Tuohy epidural needle was advanced to loss of resistance with saline technique. Negative CSF negative blood. Epidural catheter advanced to [12] centimeters. [NEGATIVE] Aspiration [NEGATIVE] test dose 1.5% Lidocaine with epi 5ml. Sterile dressing applied. Patient tolerated procedure.
[2020-09-29] MEDS: AMPICILLIN/NS 1 GM/50 ML 1 GM/50 ML BAG IV SCH ×2 (10:17→14:07)
--- NOTE | 2020-09-29 11:21 | Event Note ---
Date: 09/29/20 Assumed care of patient at 10:30 AM. SVE at 11:10 AM: /-2/BBOW. Bloody show noted. No LOF. Regular contractions. Abdomen palpates soft between contractions every 2 minutes. FHR normal baseline rate with moderate variability and variable decelerations with rapid return to baseline. Patient positioned in lateral position. Informed Dr. Umana of above. Patient has epidural and is comfortable.
[2020-09-29] MEDS ORDERED: diphenhydrAMINE 25 MG CAP PO PRN (15:25)
[2020-09-29] MEDS ORDERED: PROMETHAZINE 25 MG TAB PO PRN (15:25)
[2020-09-29] MEDS ORDERED: ACETAMINOPHEN 325 MG TAB PO PRN (15:25)
[2020-09-29] MEDS ORDERED: PROMETHAZINE 25 MG RECT SUPP PR PRN (15:25)
[2020-09-29] MEDS ORDERED: LANOLIN/ZINC/DIMETHICONE (LANSINOH) 7 GM TP PRN (15:25)
[2020-09-29] MEDS ORDERED: MAGNESIUM HYDROXIDE (MOM) ORAL LIQD UDC PO PRN (15:25)
[2020-09-29] MEDS ORDERED: WITCH HAZEL/ GLYCERIN PAD TP PRN (15:25)
[2020-09-29] MEDS ORDERED: HYDROcodone/ACETAMINOPHEN 5-325 MG TAB PO PRN (15:25)
--- NOTE | 2020-09-29 15:32 | Procedure Note ---
Date of procedure: 09/29/20 Pre-op diagnosis: term , hx of csection,labor Post-op diagnosis: other (tolac) Procedure: The patient is a 20-year-old female 2 para 1-0-0-1 female. She has a history of 1 section she now presents in labor for trial of labor after section she had a benign course. Subsequently the patient was able to deliver vaginally with a normal spontaneous vaginal delivery she did sustain second-degree midline tear and a right left vaginal tear. Both of these tears were repaired with a continuous 2-0 Vicryl. The patient tolerated this product procedure well. The rectal mucosa was intact. The baby weighed 7 pounds 8 ounces with Apgars 8 and 9 there was no meconium. Anesthesia: epidural Surgeon: MAGALY YANES Estimated blood loss: minimal Pathology: none Specimen disposition: discarded Condition: stable Disposition: PACU
[2020-09-29] MEDS: IBUPROFEN 600 MG TAB PO SCH (18:26)
[2020-09-29] MEDS: FERROUS SULFATE 325 MG TAB PO SCH (21:57)
[2020-09-30] MEDS: IBUPROFEN 600 MG TAB PO SCH ×4 (00:17→21:09)
[2020-09-30 04:26] LABS: Hematocrit 21.7 % (30.3-42.9); Hemoglobin 6.5 gm/dl (10.1-14.3)
[2020-09-30] MEDS ORDERED: MEASLES, MUMPS & RUBELLA 12,500 UNIT/0.5 ML VACCINE SUB-Q ONE (06:00)
[2020-09-30] MEDS ORDERED: TETANUS,DIPH,PERTUSS(ACELL) VACCINE 0.5 ML SYRINGE IM ONE (06:00)
[2020-09-30] MEDS ORDERED: SODIUM CHLORIDE 0.9% 250ML 250 ML IV ONE (06:17)
[2020-09-30] MEDS ORDERED: SODIUM CHLORIDE 0.9% 500 ML 500 ML IV ONE ×2 (06:26→10:00)
--- NOTE | 2020-09-30 06:36 | Progress Note ---
Assessment and Plan A: day 1 S/P . Anemia (symptomatic). P: 2 units PRBCs ordered. Repeat H/H ordered (pending). Supplement with iron. Subjective - Subjective Date of service: 09/30/20 Principal diagnosis: day 1 S/P Interval history: Hemoglobin 6.5. Pt. denies heavy vaginal bleeding. Reports she feels dizzy with standing and walking. 2 units PRBCs ordered. Repeat H/H ordered. Patient reports: appetite normal, voiding normally, dizzy ambulation, pain well controlled, flatus, bowel movement : doing well Objective - Vital Signs Latest vital signs: Vital Signs Temp Pulse Resp BP BP Pulse Ox 09/30/20 06:09 86/43 09/30/20 06:02 76 99 09/30/20 05:45 98.2 F 87 20 95/33 98 09/30/20 05:35 18 09/30/20 01:26 98.2 F 87 20 92/52 98 09/30/20 01:17 18 09/30/20 00:17 18 09/29/20 22:32 99.1 F 18 112/53 09/29/20 20:24 98 H 98 09/29/20 19:26 18 09/29/20 17:45 98.3 F 89 16 105/54 98 09/29/20 17:24 94 H 92 09/29/20 17:19 104 H 92 09/29/20 17:18 109 H 106/55 91 09/29/20 17:14 101 H 93 09/29/20 17:11 84 91 09/29/20 17:09 109 H 97 09/29/20 17:05 83 93 09/29/20 17:04 89 99 09/29/20 17:03 84 106/58 09/29/20 16:59 87 98 09/29/20 16:54 97 H 100 09/29/20 16:50 89 94 09/29/20 16:49 92 H 95 09/29/20 16:48 91 H 100/54 09/29/20 16:44 84 97 09/29/20 16:39 90 97 09/29/20 16:35 96 H 18 95/52 97 09/29/20 16:34 93 H 97 09/29/20 16:33 96 H 95/52 09/29/20 16:32 102 H 88 09/29/20 16:29 100 H 96 09/29/20 16:25 96 H 92 09/29/20 16:24 96 H 96 09/29/20 16:20 80 18 103/56 96 09/29/20 16:19 109 H 96 09/29/20 16:18 80 103/56 09/29/20 16:14 104 H 99 09/29/20 16:09 105 H 98 09/29/20 16:05 100 H 18 103/56 97 09/29/20 16:04 108 H 97 09/29/20 16:03 100 H 103/56 09/29/20 16:02 99 H 93 09/29/20 15:59 101 H 98 09/29/20 15:54 95 H 97 09/29/20 15:50 97 H 18 104/53 100 09/29/20 15:49 97 H 100 09/29/20 15:48 97 H 104/53 09/29/20 15:45 102 H 90 09/29/20 15:44 84 100 09/29/20 15:39 80 100 09/29/20 15:37 95 H 92 09/29/20 15:35 99.5 F 81 18 107/56 100 09/29/20 15:34 81 100 09/29/20 15:33 77 107/56 09/29/20 14:58 83 98 09/29/20 14:53 87 100 09/29/20 14:48 105 H 100 09/29/20 14:43 101 H 89 09/29/20 14:38 92 H 100 09/29/20 14:33 102 H 99 09/29/20 14:30 65 91 09/29/20 14:28 97 H 105/51 99 09/29/20 14:23 97 H 100 09/29/20 14:22 63 84 09/29/20 14:18 93 H 99 09/29/20 14:16 60 87 09/29/20 14:13 80 100 09/29/20 14:11 69 121/61 09/29/20 14:08 73 100 09/29/20 14:03 70 100 09/29/20 13:58 71 100 09/29/20 13:57 82 115/54 09/29/20 13:53 96 H 100 09/29/20 13:51 77 91 09/29/20 13:48 95 H 100 09/29/20 13:45 89 92 09/29/20 13:43 82 100 09/29/20 13:41 75 111/67 09/29/20 13:38 74 100 09/29/20 13:33 71 100 09/29/20 13:28 66 100 09/29/20 13:25 71 114/56 09/29/20 13:23 72 100 09/29/20 13:18 71 100 09/29/20 13:13 75 100 09/29/20 13:11 68 109/61 09/29/20 13:08 82 99 09/29/20 13:03 89 100 09/29/20 12:58 87 100 09/29/20 12:56 85 102/55 09/29/20 12:53 82 100 09/29/20 12:48 90 100 09/29/20 12:43 82 100 09/29/20 12:39 80 96/55 09/29/20 12:38 80 100 09/29/20 12:33 82 100 09/29/20 12:28 84 100 09/29/20 12:25 77 94/51 09/29/20 12:23 74 100 09/29/20 12:18 74 100 09/29/20 12:13 74 100 09/29/20 12:09 87 95/53 09/29/20 12:08 81 100 09/29/20 12:03 76 100 09/29/20 11:58 77 100 09/29/20 11:55 98.5 F 77 18 97/54 100 09/29/20 11:54 87 97/54 09/29/20 11:53 77 100 09/29/20 11:48 79 100 09/29/20 11:43 84 100 09/29/20 11:41 88 97/51 09/29/20 11:38 81 100 09/29/20 11:33 87 100 09/29/20 11:28 86 100 09/29/20 11:25 85 108/57 09/29/20 11:23 80 100 09/29/20 11:18 81 100 09/29/20 11:13 93 H 100 09/29/20 11:10 96 H 111/68 09/29/20 11:08 94 H 100 09/29/20 11:03 67 100 09/29/20 10:58 71 100 09/29/20 10:57 78 102/54 09/29/20 10:53 76 100 09/29/20 10:48 71 100 09/29/20 10:43 74 100 09/29/20 10:41 71 99/53 09/29/20 10:38 84 100 09/29/20 10:33 83 100 09/29/20 10:28 68 100 09/29/20 10:24 83 91/54 09/29/20 10:23 85 98 09/29/20 10:18 73 99 09/29/20 10:13 67 99 09/29/20 10:11 78 103/51 09/29/20 10:08 68 98 09/29/20 10:03 62 98 09/29/20 09:58 67 99 09/29/20 09:55 57 L 108/52 09/29/20 09:53 67 98 09/29/20 09:48 85 98 09/29/20 09:43 74 98 09/29/20 09:39 75 98/52 09/29/20 09:38 66 98 09/29/20 09:33 74 98 09/29/20 09:28 63 98 09/29/20 09:25 64 98/54 09/29/20 09:23 75 98 09/29/20 09:18 69 98 09/29/20 09:13 74 99 09/29/20 09:10 75 91 09/29/20 09:08 65 99 09/29/20 09:03 70 99 09/29/20 08:58 68 99 09/29/20 08:54 75 97/51 09/29/20 08:53 70 99 09/29/20 08:52 75 100/50 09/29/20 08:51 73 104/47 09/29/20 08:48 80 97 09/29/20 08:46 77 100/53 09/29/20 08:44 90 108/56 09/29/20 08:43 81 100 09/29/20 08:42 80 106/57 09/29/20 08:40 82 97/55 09/29/20 08:38 70 107/59 100 09/29/20 08:36 82 101/55 09/29/20 08:34 80 100/57 09/29/20 08:33 79 100 09/29/20 08:32 80 102/52 09/29/20 08:30 68 102/59 09/29/20 08:28 72 102/56 99 09/29/20 08:26 80 103/57 09/29/20 08:24 68 106/58 09/29/20 08:23 76 99 09/29/20 08:22 76 105/57 09/29/20 08:20 81 105/56 09/29/20 08:18 69 108/59 99 09/29/20 08:16 62 102/57 09/29/20 08:14 77 107/55 09/29/20 08:13 72 98 09/29/20 08:12 65 101/54 09/29/20 08:10 68 100/53 09/29/20 08:08 73 96/55 99 09/29/20 08:06 77 102/54 09/29/20 08:04 85 115/54 09/29/20 08:03 75 99 09/29/20 08:02 84 113/64 09/29/20 08:00 77 111/66 09/29/20 07:58 92 H 119/71 99 09/29/20 07:56 90 130/80 09/29/20 07:53 83 99 09/29/20 07:48 83 99 09/29/20 07:43 98.6 F 89 18 130/83 130/83 98 09/29/20 07:38 103 H 78 L 09/29/20 07:35 81 92 09/29/20 07:33 71 98 09/29/20 07:28 74 90 09/29/20 07:23 74 99 09/29/20 07:21 85 89 09/29/20 07:18 72 100 09/29/20 07:15 65 89 09/29/20 07:13 67 96 09/29/20 07:08 76 99 09/29/20 07:03 69 99 09/29/20 06:58 69 99 09/29/20 06:53 72 99 09/29/20 06:48 74 97 09/29/20 06:43 69 99 09/29/20 06:38 76 99 09/29/20 06:33 87 97 Intake and Output 09/29/20 09/29/20 09/30/20 15:59 23:59 07:59 Intake Total 550.000 240 Output Total 800 600 400 Balance -250.000 -360 -400 Intake: IV 550.000 AMPICILLIN/NS 1 GM/50 ML 50 1 gm In 50 ml @ 100 mls/ hr IV Q4H KARLOS Rx#: [id number] Lactated Ringers 1,000 ml 500.000 @ 125 mls/hr IV DIRECT KARLOS Rx#:[id number] Oral 240 Output: Urine 800 600 400 Indwelling Catheter 800 Void 600 400 Other: Total, Intake Amount 240 Total, Output Amount 800 600 400 Estimated Blood Loss 300 - Exam Abdomen: Present: normal appearance, soft. Absent: distention, tenderness, guarding, rigidity Uterus: Present: normal, firm, fundal height below umbilicus. Absent: bogginess, tenderness Extremities: Absent: tenderness - Labs Labs: Abnormal lab results 09/29/20 09/30/20 Range/Units 07:37 03:51 Hgb 6.5 L D (10.1-14.3) gm/dl Hct 21.7 L D (30.3-42.9) % Crossmatch See Detail
[2020-09-30] MEDS: PRENATAL VIT27-FE FUMARATE-FOLIC ACID VIT TAB PO SCH (08:59)
[2020-09-30] MEDS: FERROUS SULFATE 325 MG TAB PO SCH ×2 (09:00→21:09)
[2020-09-30] MEDS: LACTATED RINGERS 1,000 ML IV SCH (09:00)
[2020-09-30] MEDS ORDERED: SODIUM CHLORIDE 0.9% 500 ML 500 ML ONE (09:48)
[2020-09-30 20:13] LABS: Hematocrit 29.2 % (30.3-42.9); Hemoglobin 9.4 gm/dl (10.1-14.3)
[2020-10-01] MEDS: IBUPROFEN 600 MG TAB PO SCH ×2 (05:51→11:00)
--- NOTE | 2020-10-01 10:07 | Progress Note ---
Assessment and Plan A: day 2 S/P (). Anemia. P: Discharge patient home today. Discussed with patient discharge instructions and warning signs. Advised patient to continue taking her vitamins and iron supplements at home. Advised patient to avoid intercourse and lifting for 6 weeks. Advised patient to follow up at [facility] in 2 weeks for repeat H&H. Patient voiced understanding of all instructions. Subjective - Subjective Date of service: 10/01/20 Principal diagnosis: day 2 S/P Interval history: Patient received 2 units of PRBCs yesterday; states she feels much better today. Denies dizziness or any other problems. Patient requests to go home today. States she has vitamins and iron supplements at home and she will continue to take these at home. Patient reports: appetite normal, voiding normally, pain well controlled, flatus, ambulating normally, no dizzy ambulation, no bowel movement, no nauseated [place]: doing well Objective - Vital Signs Latest vital signs: Vital Signs Temp Pulse Resp BP BP Pulse Ox 10/01/20 07:50 98.5 F 69 18 109/67 96 10/01/20 05:51 18 10/01/20 00:41 98.4 F 71 18 105/61 97 09/30/20 22:09 18 09/30/20 21:09 18 09/30/20 17:32 98.7 F 71 16 99/48 98 09/30/20 15:55 98.7 F 71 16 99/48 98 09/30/20 15:35 98.0 F 69 16 96/43 98 09/30/20 15:05 98.1 F 68 16 106/55 98 09/30/20 14:35 97.8 F 70 16 100/50 97 09/30/20 14:05 97.9 F 73 16 105/56 98 09/30/20 13:35 98.0 F 73 16 105/56 98 09/30/20 13:20 98.0 F 73 16 101/58 98 09/30/20 13:05 98.5 F 73 16 105/56 98 09/30/20 12:50 98.5 F 73 16 106/59 97 09/30/20 12:20 98.7 F 68 16 106/59 98 09/30/20 11:50 97.8 F 78 18 102/57 98 09/30/20 11:20 97.7 F 76 18 94/50 98 09/30/20 10:50 97.7 F 76 16 100/49 98 09/30/20 10:20 97.7 F 84 16 91/44 97 Intake and Output 09/30/20 10/01/20 10/01/20 23:59 07:59 15:59 Intake Total 120 Balance 120 Intake: Oral 120 Other: Total, Intake Amount 120 # Voids Void 1 1 - Exam Cardiovascular: Present: Regular rate Lungs: Present: Clear to auscultation Abdomen: Present: normal appearance, soft. Absent: distention, tenderness, guarding, rigidity Uterus: Present: normal, firm, fundal height below umbilicus. Absent: bogginess, tenderness Extremities: Present: normal. Absent: tenderness - Labs Labs: Abnormal lab results 09/29/20 09/30/20 Range/Units 07:37 19:38 Hgb 9.4 L (10.1-14.3) gm/dl Hct 29.2 L D (30.3-42.9) % Crossmatch See Detail
--- NOTE | 2020-10-01 10:20 | Discharge Summary ---
Providers - Providers Date of Admission: 09/29/20 05:38 Date of discharge: 10/01/20 Attending physician: TOMÁS HUGGINS JR, MD Primary care physician: TOMÁS HUGGINS JR, MD Hospitalization Reason for admission: active labor Delivery: , Laceration: 2nd degree Other procedures: other (blood transfusion) complications: other (severe anemia requiring blood transfusion) Discharge diagnosis: IUP at term delivered, other (anemia) [place] baby: male Pertinent studies: Labs. Hospital course: Stable hospital course. Patient received 2 units of PRBCs. Condition at discharge: Good Disposition: DC-01 TO HOME OR SELFCARE - Discharge Diagnoses (1) Term delivered Status: Acute (2) Anemia Status: Acute Plan - Provider Discharge Summary Activity: routine, no sex for 6 weeks, no heavy lifting 4 weeks, no strenuous exercise Diet: routine Instructions: routine Additional instructions: Continue taking your vitamins and iron supplements at home. Follow up at [facility] in 2 weeks. Call your doctor immediately for: * Fever > 100.5 * Heavy vaginal bleeding ( >1 pad per hour) * Severe persistent headache * Shortness of breath * Reddened, hot, painful area to leg or breast - Follow up plan Follow up: PRIMARY CARE, [Referring] - 14 Days
[2020-10-01] MEDS: FERROUS SULFATE 325 MG TAB PO SCH (11:00)
[2020-10-01] MEDS: PRENATAL VIT27-FE FUMARATE-FOLIC ACID VIT TAB PO SCH (11:00)
[2020-10-01] MEDS ORDERED: MEASLES, MUMPS & RUBELLA 12,500 UNIT/0.5 ML VACCINE SUB-Q ONE (11:30)
[2020-10-01 15:12] VITALS: BP 112/51
== END 2020-10-01 15:00 | disposition home or self-care (01) | DRG 807 ==
LOC: TRG 05:00 → APU 05:02 → TRG 05:38 → LD 05:38 → OB 17:50
PROVIDERS: ADMIT Obstetrics & Gynecology; ATTEND Obstetrics & Gynecology
PROC: 3E0R3BZ Introduction of Anesthetic Agent into Spinal Canal, Percutaneous Approach (ICD-10-PCS; principal; 2020-09-29)
PROC: 10E0XZZ Delivery of Products of Conception, External Approach (ICD-10-PCS; 2020-09-29)
PROC: 0KQM0ZZ Repair Perineum Muscle, Open Approach (ICD-10-PCS; 2020-09-29)
PROC: 00HU33Z Insertion of Infusion Device into Spinal Canal, Percutaneous Approach (ICD-10-PCS; 2020-09-29)
PROC: 30233N1 Transfusion of Nonautologous Red Blood Cells into Peripheral Vein, Percutaneous Approach (ICD-10-PCS; 2020-09-30)
DX: O99.824 Streptococcus B carrier state complicating childbirth (principal); Z37.0 Single live birth; Z3A.37 37 weeks gestation of pregnancy; Z20.822 Contact with and (suspected) exposure to COVID-19; O34.211 Maternal care for low transverse scar from previous cesarean delivery; O99.02 Anemia complicating childbirth; K21.9 Gastro-esophageal reflux disease without esophagitis; O70.1 Second degree perineal laceration during delivery
CPT/HCPCS: 36415; 59025; 85014; 85018; 85027; 86592; 86850; 86900; 86901; 86920; 90707; G0378; J0290; J3010; J7050; J7120; P9016; U0003